=== PATIENT | female | born 1975 | race Caucasian/White ===

== ENCOUNTER 2017-07-15 16:52 | Emergency (ER) | payer OTHER ==
[~2017-07-15 16:52] MED LIST: BENZ-12 PO; METHADONE; PRE20 PO; ZIT250 PO
[2017-07-15 16:53] VITALS: BP 115/88; PULSE 117; RESP 15; O2SAT 94
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
[2017-07-15] MEDS ORDERED: HYDROmorphone 1 mg/mL Inj IM ONE (17:20)
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
[2017-07-15] MEDS ORDERED: IBUP800T28 PO (18:18)
[2017-07-15 18:35] VITALS: BP 121/71; PULSE 106; RESP 18; O2SAT 96
== END 2017-07-15 18:37 | disposition home or self-care (01) ==
LOC: SED 16:52
DX: S16.1XXA Strain of muscle, fascia and tendon at neck level, initial encounter (principal); V43.52XA Car driver injured in collision with other type car in traffic accident, initial encounter; Y93.9 Activity, unspecified; Y92.410 Unspecified street and highway as the place of occurrence of the external cause; Y99.8 Other external cause status; M79.7 Fibromyalgia; F17.200 Nicotine dependence, unspecified, uncomplicated; Z88.1 Allergy status to other antibiotic agents; Z88.2 Allergy status to sulfonamides
CPT/HCPCS: 70450; 72125; 96372; 99284; J1170